=== PATIENT | male | born 1980 | race Caucasian/White ===

== ENCOUNTER → 2019-04-17 | Outpatient (CLI) | payer BC ==
[~2019-04-17] MED LIST: BUPIVACAINE HCL 0.25% 10 ML VIAL As Ordered ONE; BUPIVACAINE LIPOSOME/PF 1.3% 20ML VIAL (13.3MG/ML)(EXPAREL)(C9290 PER1MG) As Ordered ONE; CETI10CA2 PO; EPINEPHrine INJ 1 MG/ML 1ML AMP As Ordered ONE; LIDOCAINE 1% MDV 20ML VIAL As Ordered ONE; TRANEXAMIC ACID 100 MG/ML 10ML VIAL As Ordered ONE; ceFAZolin 1GM INJ (J0690 PER 500MG) As Ordered ONE
[2019-04-17 11:21] VITALS: BP 130/82
--- NOTE | 2019-04-18 06:05 | REP ---
Clinical: Left neck mass. Technique: Real time jiménez scale and color evaluation using linear high frequency transducer. Findings: Directed ultrasound examination of the left neck at the site of palpable mass demonstrates ovoid hypoechoic lesion with central fatty hilum consistent with lymph node and measuring 2.1 x 1.1 x 1.8 cm. No further abnormalities are identified. Impression: Mildly prominent lymph node along the left cervical chain. Electronically Signed by Manuel Clayton MD 04/18/2019 05:57 A
--- NOTE | 2019-04-18 13:26 | REP ---
ULTRASOUND-GUIDED LEFT NECK LYMPH NODE BIOPSY The procedure was performed under the direct supervision of Dr. Falk. The patient has a history of a 1.9 x 1.8 x 2.6 cm lymph node within the left submandibular region seen on a previous CT scan from [facility] performed on 01/12/2019. The risks and benefits of the procedure were explained to the patient and informed consent was obtained. The left submandibular lymph node was localized using ultrasound guidance. The skin was prepped and draped in a sterile fashion. 1% lidocaine was used as a local anesthetic. Using ultrasound guidance eight fine-needle aspirations were obtained using 25 gauge needles. The patient tolerated the procedure well and there were no immediate complications. After the appropriate amount of monitored convalescence the patient was discharged from the department. Reviewed by DIEGO Herrera 04/17/2019 02:49 P Electronically Signed by Lázaro Falk MD 04/18/2019 01:17 P
== END ==
LOC: M IRPRO 10:16
DX: Z79.899 Other long term (current) drug therapy (principal); R22.1 Localized swelling, mass and lump, neck
CPT/HCPCS: 10005; 76536; 76942; 88173; C9290; J0690

== ENCOUNTER → 2020-12-03 | Outpatient (REF) | payer BC ==
[~2020-12-03] MED LIST changes: -BUPIVACAINE HCL 0.25% 10 ML VIAL As Ordered ONE; -BUPIVACAINE LIPOSOME/PF 1.3% 20ML VIAL (13.3MG/ML)(EXPAREL)(C9290 PER1MG) As Ordered ONE; -EPINEPHrine INJ 1 MG/ML 1ML AMP As Ordered ONE; -LIDOCAINE 1% MDV 20ML VIAL As Ordered ONE; -TRANEXAMIC ACID 100 MG/ML 10ML VIAL As Ordered ONE; -ceFAZolin 1GM INJ (J0690 PER 500MG) As Ordered ONE
== END ==
LOC: M LAB REF 18:47
PROVIDERS: ATTEND Dermatology
DX: D49.2 Neoplasm of unspecified behavior of bone, soft tissue, and skin (principal)